=== PATIENT | male | born 1965 | race Two or more races ===

== ENCOUNTER 2017-02-07 08:45 | Outpatient (RCR) | payer BC ==
[~2017-02-07 08:45] MED LIST: FLOMAX0.4 MG ORAL; NORCO 10/3251 EA ORAL
== END 2017-02-16 | disposition home or self-care (01) ==
LOC: PTY 08:45
DX: M51.36 Other intervertebral disc degeneration, lumbar region (principal)
CPT/HCPCS: 97110; 97140; 97162; G0283

== ENCOUNTER 2017-05-26 18:02 | Emergency (ER) | payer BC ==
[~2017-05-26] VITALS: Ht 167.6 cm; Wt 81.6 kg
[2017-05-26] MEDS ORDERED: NKM (18:22)
[2017-05-26] MEDS ORDERED: Glucagon 1mg Inj IV ONE (19:00)
[2017-05-26 19:37] VITALS: BP 122/72
[2017-05-26 19:38] VITALS: BP 116/64
--- NOTE | 2017-05-26 21:11 | Emergency Room Report ---
History of Present Illness General Chief Complaint: Foreign Body Source: Patient Present Illness HPI The patient is a 51-year-old male presenting for possible foreign body. He states that he was eating seafood soup and swallowed a whole shrimp with the tail still attached. This occurred just prior to arrival. He feels like it is stuck in his throat. Pain is an 8/10 scratching sensation and does not radiate from the throat. He states that he is unable to clear his throat. He did not eat anything after this happened. He denies other symptoms including nausea, vomiting, shortness of breath, chest pain Allergies: Coded Allergies: No Known Allergies (Unverified , 02/02/14) Patient History Past Medical History: see triage record Pertinent Family History: none Reviewed Nursing Documentation: PMH: Agreed, PSxH: Agreed Nursing Documentation-PMH Hx Gastrointestinal Problems: Yes - GERD Review of Systems All Other Systems: negative except mentioned in HPI Physical Exam Vital Signs Date Time Temp Pulse Resp B/P (MAP) Pulse Ox O2 Delivery O2 Flow Rate FiO2 05/26/17 18:19 98.1 82 17 116/64 97 Room Air Sp02 EP Interpretation: reviewed, normal General Appearance: no apparent distress, alert, GCS 15, non-toxic Head: normocephalic, atraumatic Eyes: bilateral eye normal inspection, bilateral eye PERRL ENT: hearing grossly normal, no angioedema, normal voice, pharyngeal erythema Neck: full range of motion, no bony tend, supple/symm/no masses Respiratory: chest non-tender, lungs clear, normal breath sounds, no respiratory distress, no retraction, no accessory muscle use, no wheezing, speaking full sentences Cardiovascular #1: regular rate, rhythm, no edema Musculoskeletal: back normal, gait/station normal, normal range of motion, non- tender Neurologic: alert, oriented x3, responsive, motor strength/tone normal, sensory intact, speech normal Psychiatric: judgement/insight normal, memory normal, mood/affect normal, no suicidal/homicidal ideation Skin: normal color, no rash, warm/dry, well hydrated Lymphatic: no adenopathy Medical Decision Making PA Attestation Dr. Figueroa is my supervising physician. Patient management was discussed with my supervising physician Diagnostic Impression: Primary Impression: Throat pain ER Course The patient is a 51-year-old male presenting for possible throat foreign body Differential diagnoses considered but not limited to: Foreign body, aspiration, abrasion, pharyngitis Physical exam: vitals WNL. NAD HEENT: There is pharyngeal erythema. No foreign bodies seen in oropharynx.No audible wheezing Lungs are clear to auscultation bilaterally. No respiratory distress The patient is given 1g of IV glucagon and states he is feeling more comfortable. The patient was monitored. He is then given 2 pieces of bread which he consumed without any difficulty. He is then given a full cup of water which he drank also without difficulty. Suspicion for foreign body is low. He states that he is feeling better. He was discharged and given ER precautions. He will followup with his primary doctor Last Vital Signs Date Time Temp Pulse Resp B/P (MAP) Pulse Ox O2 Delivery O2 Flow Rate FiO2 05/26/17 19:38 98.1 17 116/64 97 Room Air 05/26/17 18:19 82 Status: improved Disposition: HOME, SELF-CARE Condition: Improved Patient Instructions: Swallowed Foreign Body, Adult Additional Instructions: I discussed my findings with the patient. All questions and concerns have been answered. Treatment and medication compliance have been addressed. Please see your primary doctor for further treatment and evaluation. Return to the emergency department as soon as possible if you experience symptoms such as difficulty breathing, inability to swallow, vomiting OMAR SUH May 26, 2017 21:11
== END 2017-05-26 19:40 | disposition home or self-care (01) ==
LOC: EMR 18:38
DX: R07.0 Pain in throat (principal); K21.9 Gastro-esophageal reflux disease without esophagitis
CPT/HCPCS: 96374; 99284; J1610